=== PATIENT | female | born 2000 | race Caucasian/White ===

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

== ENCOUNTER 2019-01-14 02:43 | Inpatient (IN) | payer BC, MEDICAID ==
[2019-01-14 03:54] VITALS: BMI 26.6
[2019-01-14] MEDS: Lactated Ringer's 1,000 ML IV SCH ×2 (04:15→05:25)
--- NOTE | 2019-01-14 05:54 | OBHP ---
Datetime: 01/14/2019 03:18 IP Adm Impression: Term, intrauterine IP Admit Plan: Admit to unit; Initiate labor protocol; Observation/Evaluation Admit Comment, IP Provider: 18 YO with IUP at EGA 38.6 weeks as per LMP 04/17/18, EDC 01/22/19, who pr esents to EDOB with c/o pelvic pain with contraction that started at 12:20 AM today Q5min apart initi ally and has increased in frequency and now are Q2 minutes. Patient denies VB, LOF. Patient denies he adache, dizziness, N/V, dysuria, fever or other medical complaint at this time. Patient endorses +FM. ROS: all other systems reviewed and negative unless noted in HPI OBGYN: First pregnancies, patient denies h/o problems with current pregnancies. provider: Dr Rivas PMH: Denies FMH: denies Meds: PNV Surgical Hx: Denies SOCHx: denies ETOH, smoking, drug use ALLERG: NKA Labs: GBS negative on 12/23/18, Rubella inmune. Type and screen: B+, ab negative PE: GEN: no acute distress, appears comfortable. VS: WNL Abd: Gravid, no tenderness to palpation Ext: No pedal edema Pelvic exam by attending A/P 18 YO with IUP at EGA 38.6 weeks as per LMP 04/17/18, EDC 01/22/19, who presents to ED[facility] with c/o pe lvic pain with contraction Q2 minutes apart. Impression: possibly early labor -Observation and eval in L_D -Maternal VS monitoring -FHR monitoring -IVF hydration: LR bolus Case reviewed and discussed with attending Dr Sebastian OB Hospitalist Addendum: 18 yo G1 at 38+6 wks admitted to L_D in labor. VE -1 at 0545 per R N. Pt ordered for nubaine for pain. (ES) Extremities - PN: Normal Lungs - PN: Normal Heart - PN: Normal General - PN: Normal FHR - Baseline A Provider: 140 Comments, ACOG Physical Exam: see triage comment IP Hx Assessment: The History has been Reviewed and is Current EGA AdmitDate IP: 38.6 Vital Signs Provider: Reviewed; Within Normal Limits IP Chief Complaint: Uterine contractions NICHD Variability Prov Fetus A: Moderate 6-25bpm NICHD Accel Fetus A IP Provider: 15X15 NICHD Decel Fetus A IP Provider: None
[2019-01-14] MEDS ORDERED: Lactated Ringer's 1,000 ML IV ONE (05:56)
[2019-01-14] MEDS ORDERED: Oxytocin 30 UNIT in NS 500 ml 30 UNITS/500 ML BAG IV ONE (05:58)
[2019-01-14] MEDS ORDERED: OXYTOCIN/0.9 % NS 20 UNIT/1,000 ML BAG IV SCH (06:00)
[2019-01-14] MEDS ORDERED: Lactated Ringer's 1,000 ML IV SCH (06:00)
--- NOTE | 2019-01-14 06:00 | OBADHP ---
Datetime: 01/14/2019 05:52 Admit Comment, IP Provider: 18 YO with IUP at EGA 38.6 weeks as per LMP 04/17/18, EDC 01/22/19, who pr esents to ED[facility] with c/o pelvic pain with contraction that started at 12:20 AM today Q5min apart initi ally and has increased in frequency and now are Q2 minutes. Patient denies VB, LOF. Patient denies he adache, dizziness, N/V, dysuria, fever or other medical complaint at this time. Patient endorses +FM. ROS: all other systems reviewed and negative unless noted in HPI OBGYN: First pregnancies, patient denies h/o problems with current pregnancies. provider: Dr Rivas PMH: Denies FMH: denies Meds: PNV Surgical Hx: Denies SOCHx: denies ETOH, smoking, drug use ALLERG: NKA Labs: GBS negative on 12/23/18, Rubella in[place]e. Type and screen: B+, ab negative PE: GEN: no acute distress, appears comfortable. VS: WNL Abd: Gravid, no tenderness to palpation Ext: No pedal edema Pelvic exam by attending A/P 18 YO with IUP at EGA 38.6 weeks as per LMP 04/17/18, EDC 01/22/19, who presents to ED[facility] with c/o pe lvic pain with contraction Q2 minutes apart. Impression: possibly early labor -Observation and eval in L_D -Maternal VS monitoring -FHR monitoring -IVF hydration: LR bolus Case reviewed and discussed with attending Dr Sebastian OB Hospitalist Addendum: 18 yo G1 at 38+6 wks admitted to L_D in labor. VE -1 at 0545 per R N. Pt ordered for nubaine for pain. (ES) Extremities - PN: Normal Abdomen - PN: Normal Lungs - PN: Normal Heart - PN: Normal General - PN: Normal FHR - Baseline A Provider: 130's Membranes, Provider: Intact Contraction Comments Provider: Q2-4 Vital Signs Provider: Reviewed IP Chief Complaint: Uterine contractions NICHD Variability Prov Fetus A: Moderate 6-25bpm NICHD Accel Fetus A IP Provider: 15X15 FHR Category Provider Fetus A: Category I NICHD Decel Fetus A IP Provider: None Dilatation, Provider: 2-3 Effacement, Provider: 75 Station, Provider: -1 Genitourinary Exam: Normal EGA AdmitDate IP: 38.6 IP Adm Impression: Term, intrauterine IP Admit Plan: Admit to unit; Initiate labor protocol Datetime: 01/14/2019 03:18 Comments, ACOG Physical Exam: see triage comment IP Hx Assessment: The History has been Reviewed and is Current Datetime: 11/08/2018 16:40 IP Chief Complaint Other: feeling wet arond vagina / white discharge Pelvic Type - PN: Adequate Back - PN: Normal Breast - PN: Not Done Thyroid - PN: Normal Neurologic - PN: Normal HEENT - PN: Normal Pool Provider: Negative DTRs - PN: Normal
[2019-01-14] MEDS ORDERED: Nalbuphine HCL 10 mg/ml Ampule IVP PRN (06:02)
[2019-01-14 06:46] LABS: BASO % 0.2 % (0.0-2.0); EOS % 0.4 % (0.0-4.0); HEMOGLOBIN 11.7 g/dL (12.0-16.0); LYMPH # 2.7 K/uL (1.0-4.3); LYMPH % 26.4 % (20.0-40.0); MEAN CELL VOLUME 82.9 fl (81.0-99.0); MEAN CORPUSCULAR HEMOGLOBIN 26.4 pg (27.0-31.0); MEAN CORPUSCULAR HGB CONC 31.9 g/dL (33.0-37.0); MEAN PLATELET VOLUME 10.8 fl (7.2-11.7); MONO # 0.7 K/uL (0.0-0.8); NEUT # 6.9 K/uL (1.8-7.0); NRBC % 0.1 % (0.0-0.0); RBC 4.44 Mil/uL (3.80-5.20); RED CELL DISTRIBUTION WIDTH 14.4 % (11.5-14.5); WHITE BLOOD COUNT 10.4 K/uL (4.8-10.8)
--- NOTE | 2019-01-14 09:24 | OBPN ---
Datetime: 01/14/2019 09:00 IP Progress Impression: Reassuring heart rate IP Progress Plan: Discharge IP Progress Note Comment: She feels fine occ CTX q3m. She rec'd Nubain and feels better. She want s to eat/walk. No cerivcal change PLAN will discharge home and labor instructoins given. PMD aware MAHNDO OB Hospitalist on-call Vital Signs Provider: Within Normal Limits FHR Category Provider Fetus A: Category I Dilatation, Provider: 2 Effacement, Provider: 50 Station, Provider: high Datetime: 01/14/2019 05:52 Membranes, Provider: Intact Contraction Comments Provider: Q2-4 FHR - Baseline A Provider: 130's NICHD Accel Fetus A IP Provider: 15X15 NICHD Variability Prov Fetus A: Moderate 6-25bpm NICHD Decel Fetus A IP Provider: None Datetime: 11/08/2018 16:40 Pool Provider: Negative
--- NOTE | 2019-01-14 09:24 | OBDCSUM ---
Datetime: 01/14/2019 09:15 Discharged to, Provider: Home Follow up at, Provider: Dr Rivas Disch Instr Activity: Normal activity Disch Instr Diet: Regular Discharge Diagnosis, Provider: False Labor - Undelivered Discharge Time: 01/14/2019 09:15 Follow up in weeks, Provider: Wednesday01/16/19 well ob visit Disch Referrals: None Discharge Diagnosis Prov Other: early labor
[2019-01-14 14:27] VITALS: RESP 18; TEMP 98.5
== END 2019-01-14 09:15 | disposition home or self-care (01) | DRG 807 ==
LOC: H.EROB2 02:43 → H.L&D 05:56
PROVIDERS: ADMIT Obstetrics & Gynecology; ATTEND Obstetrics & Gynecology
PROC: 10E0XZZ Delivery of Products of Conception, External Approach (ICD-10-PCS; principal; 2019-01-14)
PROC: 0KQM0ZZ Repair Perineum Muscle, Open Approach (ICD-10-PCS; 2019-01-14)
PROC: 4A1HXCZ Monitoring of Products of Conception, Cardiac Rate, External Approach (ICD-10-PCS; 2019-01-14)
DX: O77.0 Labor and delivery complicated by meconium in amniotic fluid (principal); Z37.0 Single live birth; Z3A.39 39 weeks gestation of pregnancy; O70.1 Second degree perineal laceration during delivery

== ENCOUNTER 2019-01-14 16:39 | Inpatient (IN) | payer BC, MEDICAID ==
[2019-01-14 03:54] VITALS: BMI 26.6
[2019-01-14] MEDS ORDERED: Lactated Ringer's 1,000 ML IV ONE ×2 (18:17→20:10)
[2019-01-14] MEDS ORDERED: Nalbuphine 20 mg/ml Inj (1 ml) IVP PRN (18:19)
[2019-01-14] MEDS ORDERED: Lactated Ringer's 1,000 ML IV SCH (18:30)
[2019-01-14] MEDS ORDERED: Nalbuphine HCL 10 mg/ml Ampule ONE (22:14)
[2019-01-14] MEDS ORDERED: Nalbuphine HCL 10 mg/ml Ampule IVP PRN (22:30)
[2019-01-14] MEDS ORDERED: Fentanyl/Bupivacaine HCl 250 ML EPI ONE (23:45)
[2019-01-14] MEDS ORDERED: Bupivacaine HCl 0.25% PF (10 ml) Inj ONE (23:45)
[2019-01-15] MEDS ORDERED: Lactated Ringer's 1,000 ML IV SCH (07:00)
--- NOTE | 2019-01-15 07:45 | OBPN ---
Datetime: 01/15/2019 07:40 IP Progress Impression: Normal progression of labor; Reassuring heart rate IP Informed Consent Obtain: Vaginal Delivery IP Progress Plan: Continue present management; Anticipate Vaginal Delivery Pool Provider: Positive Membranes, Provider: Ruptured Amniotic Fluid Color, Provider: Clear Contraction Comments Provider: 2-4m FHR - Baseline A Provider: 150 IP Progress Note Comment: She had pain last night nad re'd epidural 2am. She reeported SORM 5am and was 5cm. She feeel fine SVE fully dilated Second stage of labor PLAN anticiapte NICHD Accel Fetus A IP Provider: 15X15 FHR Category Provider Fetus A: Category I NICHD Variability Prov Fetus A: Moderate 6-25bpm Dilatation, Provider: 10 Effacement, Provider: 100 Station, Provider: 0 NICHD Decel Fetus A IP Provider: None Datetime: 01/14/2019 18:36 Gestation - Est Wks by US: 38.6 Vital Signs Provider: Reviewed; Within Normal Limits
[2019-01-15] MEDS ORDERED: Oxytocin 30 UNIT in NS 500 ml 30 UNITS/500 ML BAG IV ONE (08:04)
[2019-01-15] MEDS ORDERED: OXYTOCIN/0.9 % NS 20 UNIT/1,000 ML BAG IV SCH (08:15)
[2019-01-15] MEDS ORDERED: Benzocaine/Menthol SPRAY TOP PRN ×2 (08:37→11:39)
[2019-01-15] MEDS ORDERED: Oxycodone/Acetaminophen 5/325 mg Tab PO PRN ×2 (08:37→11:39)
[2019-01-15] MEDS ORDERED: Multivitamin With Minerals Tab PO SCH (09:00)
--- NOTE | 2019-01-15 09:16 | OBADHP ---
Datetime: 01/15/2019 07:40 FHR - Baseline A Provider: 150 Amniotic Fluid Color, Provider: Clear NICHD Variability Prov Fetus A: Moderate 6-25bpm NICHD Accel Fetus A IP Provider: 15X15 FHR Category Provider Fetus A: Category I NICHD Decel Fetus A IP Provider: None Datetime: 01/14/2019 18:36 IP Adm Impression Other: latent phase of labor Admit Comment, IP Provider: 18 YO with IUP at EGA 38.6 weeks as per LMP 04/17/18, EDC 01/22/19, return ed to [facility] after she was discharged from hospital as per her request. Pt report contraction worsen an d thats why she came back. Patient denies VB, LOF. Patient denies headache, dizziness, N/V, dysuria, fever or other medical complaint at this time. Patient endorses +FM. ROS: all other systems reviewed and negative unless noted in HPI OBGYN: First pregnancies, patient denies h/o problems with current pregnancies. provider: Dr Rivas PMH: Denies FMH: denies Meds: PNV Surgical Hx: Denies SOCHx: denies ETOH, smoking, drug use ALLERG: NKA Labs: GBS negative on 12/23/18, Rubella in[place]. Type and screen: B+, ab negative PE: GEN: no acute distress, appears comfortable. VS: WNL Abd: Gravid, no tenderness to palpation Ext: No pedal edema Pelvic exam by attending 17:41 A/P 18 YO with IUP at EGA 38.6 weeks as per LMP 04/17/18, EDC 01/22/19, who presents to [facility] with c/o pe lvic pain with contraction Q2 minutes apart. -Admitted to Unit -FHR monitoring -IVF hydration: LR bolus -LR 125 -Pit for after delivery -Nitrous oxide and nubain for pain [employer] PGY1 Case discussed with Dr Hong HERMAN Hospitalist on-call: With PGY1, I saw and examiend this pt. Agree with note. Discussion with pt about pain managment, labor, delivery and . her questions answered. MAHNDO Pelvic Type - PN: Not Done Extremities - PN: Normal Abdomen - PN: Normal Back - PN: Normal Breast - PN: Not Done Lungs - PN: Normal Heart - PN: Normal Thyroid - PN: Normal Neurologic - PN: Normal HEENT - PN: Normal General - PN: Normal Presentation-Admit: Vertex Membranes, Provider: Intact Contraction Comments Provider: + Comments, ACOG Physical Exam: heart s1 s2 heard no extra heard sound lung clear abd nontender BS+ Gestation - Est Wks by US: 38.6 Pool Provider: Negative IP Hx Assessment: The History has been Reviewed and is Current Vital Signs Provider: Reviewed; Within Normal Limits IP Chief Complaint: Uterine contractions Dilatation, Provider: 3 Effacement, Provider: 90 Station, Provider: -1 Genitourinary Exam: Normal DTRs - PN: Not Done EGA AdmitDate IP: 38.6 IP Adm Impression: Term, intrauterine ; No Active Labor; Intact Membranes IP Admit Plan: Admit to unit; Initiate labor protocol
[2019-01-16 06:24] LABS: BASO % 0.2 % (0.0-2.0); EOS # 0.1 K/uL (0.0-0.7); EOS % 0.3 % (0.0-4.0); HEMOGLOBIN 9.9 g/dL (12.0-16.0); LYMPH # 3.9 K/uL (1.0-4.3); LYMPH % 23.8 % (20.0-40.0); MEAN CORPUSCULAR HEMOGLOBIN 25.8 pg (27.0-31.0); MEAN PLATELET VOLUME 10.8 fl (7.2-11.7); NEUT # 11.4 K/uL (1.8-7.0); NEUT % 69.7 % (50.0-75.0); RBC 3.84 Mil/uL (3.80-5.20); RED CELL DISTRIBUTION WIDTH 14.5 % (11.5-14.5)
[2019-01-16 06:32] LABS: WHITE BLOOD COUNT 16.4 K/uL (4.8-10.8)
--- NOTE | 2019-01-16 07:51 | OBPPN ---
Datetime: 01/16/2019 07:46 PP Pain Prov: Within normal limits PP Pain Prov comment: no SOB chfest or leg pains PP Nausea Prov: Denies PP Flatus Prov: Yes PP Breasts Prov: Normal PP Lungs Prov: Normal PP Abdomen/Uterus Prov: Abnormal PP Vulva/Perineum Prov: Not Done PP CVA Tenderness Prov: Normal PP Extremities Prov: Normal PP C/S Incision Prov: Not Applicable PP Progress Prov: Normal PP Comments Phys Exam Prov: breast not engorged, bF; abd soft ND, fundus firm at umb. ext no calf tenderness PP Impression Prov: Normal progression PP Plan Prov: Continue present management PP Progress Note Prov: Continue PP care and OOB and ambulation start on po iron IP PP Procedures: None
[2019-01-16] MEDS: Multivitamin With Minerals Tab PO SCH (08:25)
[2019-01-17] MEDS: Multivitamin With Minerals Tab PO SCH (08:36)
--- NOTE | 2019-01-17 09:52 | OBDS ---
DELIVERY PERSONNEL Delivery Doctor: Ranjit Pitts DO Marine Fireman: Bonita Mustafa RN; Silas Perry RN Anesthesiologist: Dr. Bello Resident: Dr. Gurrola,OBR MATERNAL INFORMATION Delivery Anesthesia: Epidural Medications in Delivery: Lidocaine 1%, Pitocin 30mu in 500 0.9% NS Estimated Blood Loss (ml): 100 Placenta Cultured: No Maternal Complications: None RN Comments: Audio Visual Design Engineer Dr. Montilla in room at time of delivery. Assessment of baby done on mom's c hest Provider Comments: Over intact perinuem, of live . Thin meconium was noted prior to deli very. Dr Montilla PEDS was called for delivery. Once infant was delivered, mother was instructed to p ull baby towards her and placed on her chest for [id number]. Placenta was delivered intact spontan eously. She remained stable. Fluid prior to delivery 100cc Fluid post delivery 200cc total EBL 100cc LABOR SUMMARY EDC: 01/22/2019 00:00 No. Babies in Womb: 1 Attempted: No Labor Anesthesia: Epidural LABOR INFORMATION Reason for Induction: Not Applicable Onset of Labor: 01/15/2019 07:40 Complete Dilatation: 01/15/2019 07:40 Oxytocin: N/A Group B Beta Strep: Negative Antibiotics # of Doses: 0 Antibiotics Time of Last Dose: n/a Steroids Given: None Reason Steroids Not Administered: Not Applicable MEMBRANES Membranes Rupture Method: Spontaneous Rupture of Membranes: 01/15/2019 05:09 Length of Rupture (hrs): 3.40 Amniotic Fluid Color: Light Meconium Amniotic Fluid Amount: Small Amniotic Fluid Odor: None STAGES OF LABOR Stage 1 hrs: 0 Stage 1 min: 0 Stage 2 hrs: 0 Stage 2 min: 53 Stage 3 hrs: 0 Stage 3 min: 17 Total Time in Labor hrs: 1 Total Time in Labor min: 10 VAGINAL DELIVERY Episiotomy: None Laceration Extension: Second Degree Laceration Type: Perineal Laceration Repair: Yes Laceration Repair Note: 1% Lidocaine infiltrated. 2nd degree laceration was repaired with 2.0 Vicry l Rapide suture. Initial Vag Sponge Count: 5 Final Vag Sponge Count: 5 Initial Vag Sharps Count: 3 Final Vag Sharps Count: 3 Sponge Count Correct: Yes Sharps Count Correct: Yes Count Comment: 5 lap pads One syringe 3 suture needles BABY A INFORMATION Delivery Date/Time: 01/15/2019 08:33 Method of Delivery: Vaginal Born in Route : No : N/A Forceps: N/A Vacuum Extraction: N/A Shoulder Dystocia : No SHOULDER DYSTOCIA BABY A Infant Delivery Date/Time: 01/15/2019 08:33 PRESENTATION/POSITION BABY A Presentation: Cephalic Cephalic Presentation: N/A Breech Presentation: N/A PLACENTA INFORMATION BABY A Placenta Delivery Time : 01/15/2019 08:50 Placenta Method of Delivery: Spontaneous Placenta Status: Delivered SCORES BABY A Heart Rate 1 min: >100 bpm Resp Effort 1 min: Good Cry Reflex Irritability 1 min: Cough or Sneeze or Pulls Away Muscle Tone 1 min: Active Motion Color 1 min: Body [place], Extremities Blue Resuscitation Effort 1 min: Tactile Stimulation SCORE 1 MIN: 9 Heart Rate 5 min: >100 bpm Resp Effort 5 min: Good Cry Reflex Irritability 5 min: Cough or Sneeze or Pulls Away Muscle Tone 5 min: Active Motion Color 5 min: Body [place], Extremities Blue Resuscitation Effort 5 min: N/A SCORE 5 MIN: 9 INFORMATION BABY A Gestational Age at Delivery: 39.0 Gestational Status: Term Outcome : Liveborn Infant Condition : Stable Infant Sex: Female IDENTIFICATION/MEDS BABY A ID Band Number: [id number] ID Band Location: Left Leg; Left Arm WEIGHT/LENGTH BABY A Infant Birthweight (gms): 3125 Weight (lb): 6 Infant Weight (oz): 14 CORD INFORMATION BABY A No. Cord Vessels: 3 Nuchal Cord : N/A Cord Blood Taken: Yes Infant Suction: Mouth
--- NOTE | 2019-01-17 09:53 | OBDS ---
DELIVERY PERSONNEL Delivery Doctor: Ranjit Pitts DO Abnormal Psychology Teacher: Bonita Mustafa RN; Silas Perry RN Anesthesiologist: Dr. Bello Resident: Dr. Gurrola,OBR MATERNAL INFORMATION Delivery Anesthesia: Epidural Medications in Delivery: Lidocaine 1%, Pitocin 30mu in 500 0.9% NS Estimated Blood Loss (ml): 100 Placenta Cultured: No Maternal Complications: None RN Comments: Non Profit Financial Controller Dr. Montilla in room at time of delivery. Assessment of baby done on mom's c hest Provider Comments: Over intact perinuem, of live . Thin meconium was noted prior to deli very. Dr Montilla PEDS was called for delivery. Once infant was delivered, mother was instructed to p ull baby towards her and placed on her chest for [id number]. Placenta was delivered intact spontan eously. She remained stable. Fluid prior to delivery 100cc Fluid post delivery 200cc total EBL 100cc LABOR SUMMARY EDC: 01/22/2019 00:00 EDC: 01/22/2019 00:00 EDC: 01/22/2019 00:00 No. Babies in Womb: 1 Attempted: No Labor Anesthesia: Epidural LABOR INFORMATION Reason for Induction: Not Applicable Onset of Labor: 01/15/2019 07:40 Complete Dilatation: 01/15/2019 07:40 Oxytocin: N/A Group B Beta Strep: Negative Group B Beta Strep: Negative Antibiotics # of Doses: 0 Antibiotics Time of Last Dose: n/a Steroids Given: None Reason Steroids Not Administered: Not Applicable MEMBRANES Membranes Rupture Method: Spontaneous Rupture of Membranes: 01/15/2019 05:09 Length of Rupture (hrs): 3.40 Amniotic Fluid Color: Light Meconium Amniotic Fluid Amount: Small Amniotic Fluid Odor: None STAGES OF LABOR Stage 1 hrs: 0 Stage 1 min: 0 Stage 2 hrs: 0 Stage 2 min: 53 Stage 3 hrs: 0 Stage 3 min: 17 Total Time in Labor hrs: 1 Total Time in Labor min: 10 VAGINAL DELIVERY Episiotomy: None Laceration Extension: Second Degree Laceration Type: Perineal Laceration Repair: Yes Laceration Repair Note: 1% Lidocaine infiltrated. 2nd degree laceration was repaired with 2.0 Vicry l Rapide suture. Initial Vag Sponge Count: 5 Final Vag Sponge Count: 5 Initial Vag Sharps Count: 3 Final Vag Sharps Count: 3 Sponge Count Correct: Yes Sharps Count Correct: Yes Count Comment: 5 lap pads One syringe 3 suture needles BABY A INFORMATION Infant Delivery Date/Time: 01/15/2019 08:33 Method of Delivery: Vaginal Method of Delivery: Vaginal Born in Route : No : N/A Forceps: N/A Vacuum Extraction: N/A Shoulder Dystocia : No SHOULDER DYSTOCIA BABY A Delivery Date/Time: 01/15/2019 08:33 PRESENTATION/POSITION BABY A Presentation: Cephalic Cephalic Presentation: N/A Breech Presentation: N/A PLACENTA INFORMATION BABY A Placenta Delivery Time : 01/15/2019 08:50 Placenta Method of Delivery: Spontaneous Placenta Status: Delivered SCORES BABY A Heart Rate 1 min: >100 bpm Resp Effort 1 min: Good Cry Reflex Irritability 1 min: Cough or Sneeze or Pulls Away Muscle Tone 1 min: Active Motion Color 1 min: Body [place], Extremities Blue Resuscitation Effort 1 min: Tactile Stimulation SCORE 1 MIN: 9 Heart Rate 5 min: >100 bpm Resp Effort 5 min: Good Cry Reflex Irritability 5 min: Cough or Sneeze or Pulls Away Muscle Tone 5 min: Active Motion Color 5 min: Body [place], Extremities Blue Resuscitation Effort 5 min: N/A SCORE 5 MIN: 9 INFANT INFORMATION BABY A Gestational Age at Delivery: 39.0 Gestational Status: Term Outcome : Liveborn Condition : Stable Sex: Female IDENTIFICATION/MEDS BABY A ID Band Number: [id number] ID Band Location: Left Leg; Left Arm WEIGHT/LENGTH BABY A Birthweight (gms): 3125 Infant Weight (lb): 6 Weight (oz): 14 CORD INFORMATION BABY A No. Cord Vessels: 3 Nuchal Cord : N/A Cord Blood Taken: Yes Infant Suction: Mouth
--- NOTE | 2019-01-17 10:14 | OBPPN ---
Datetime: 01/17/2019 10:10 PP Pain Prov: Within normal limits PP Pain Prov comment: no SOB, chest or leg pains PP Nausea Prov: Denies PP Flatus Prov: Yes PP Nausea Prov comment: Voiding well PP Flatus Prov comment: No C/F PP Breasts Prov: Normal PP Lungs Prov: Normal PP Abdomen/Uterus Prov: Abnormal PP Lochia Prov: Normal PP CVA Tenderness Prov: Normal PP Extremities Prov: Normal PP C/S Incision Prov: Not Applicable PP Progress Prov: Normal PP Comments Phys Exam Prov: breast NE, breast feeding NT; Abd soft ND, fundus firm NT below the umb.: Ext no edema or calf tenderness. PP Impression Prov: Normal progression PP Plan Prov: Discharge PP Progress Note Prov: D/C home and follow up office Instructions given IP PP Procedures: None Vital Signs Provider PP: Reviewed
--- NOTE | 2019-01-17 10:16 | OBDCSUM ---
Datetime: 01/17/2019 10:13 Discharged to, Provider: Home Follow up at, Provider: Dr Rivas Disch Instr Activity: Bedrest; May be up to bathroom; May be up for meals; May Shower Disch Instr Diet: Regular Discharge Instructions, Provider: Routine instructions given Discharge Diagnosis, Provider: Term Delivered Discharge Time: 01/17/2019 10:13 Follow up in weeks, Provider: 4-6 wks Disch Referrals: None Contraception discussed, Prov: Yes Disch Activity Restrictions: No exercising; No lifting; No driving; Minimize walking; Minimize stair -climbing; No sexual activity; Nothing in vagina - [place], tampons, douche Discharge Comment, Provider: Continue PP care and PNC vit and iron Contraception after Delivery: Undecided Datetime: 01/14/2019 09:15 Discharge Diagnosis, Provider: Term Delivered; False Labor - Undelivered
[2019-01-17 17:25] VITALS: BP 115/76; PULSE 76; RESP 20; TEMP 98; O2SAT 99
== END 2019-01-17 11:45 | disposition home or self-care (01) | DRG 807 ==
LOC: H.EROB2 16:39 → H.L&D 18:17 → H.OB/GYN 01-15 12:40
PROVIDERS: ADMIT Specialist; ATTEND Specialist
PROC: 4A1HXCZ Monitoring of Products of Conception, Cardiac Rate, External Approach (ICD-10-PCS; 2019-01-14)
PROC: 10E0XZZ Delivery of Products of Conception, External Approach (ICD-10-PCS; principal; 2019-01-15)
PROC: 0KQM0ZZ Repair Perineum Muscle, Open Approach (ICD-10-PCS; 2019-01-15)
DX: O77.0 Labor and delivery complicated by meconium in amniotic fluid (principal); O70.1 Second degree perineal laceration during delivery; Z37.0 Single live birth; Z3A.39 39 weeks gestation of pregnancy